=== PATIENT | female | born 1930 | race Caucasian/White ===

== ENCOUNTER 2017-09-10 11:21 | Inpatient (IN) | payer OTHER ==
[~2017-09-10] VITALS: Ht 162.6 cm; Wt 65.6 kg
[~2017-09-10 11:21] MED LIST: ALBIPROI INH; ALEN70 PO; ALPR.5 PO; AMIT50 PO; ASPI325 PO; ASPI81EC PO; Aspirin EC81 MG PO; BETA1 PO; CARV25 PO; CARV6.25 PO; CIPR500 PO; CLON1 PO; CLOP75 PO; DIPH50 PO; ERGO50000 PO; ESCI10 PO; EZET10 PO; FURO40 PO; HYDACE5 PO; HYDCHL12.5; HYDPAM50 PO; HYDR-86 PO; HYDR1TAB94 PO; LEVO750 PO; LEVSOD100 PO; LEVSOD50; LEVSOD50 PO; LIOT5 PO; LISI5 PO; LOSA25 PO; LUTEIN; MECL25 PO; METO50 PO; MULVITMIND PO; MULVITMINF PO; NAPR500 PO; NEBI10 PO; NIAC500ER PO; NITR.4SL SL; Norco 5-325 Ta1 EACH PO; OMEG1CAP30 PO; OMEP20ER PO; OMEPRAZOLE MAGN20 MG PO; POTCHL20ER PO; PRED20 PO; PRESSER VISION; UBID10 PO; UBID100 PO; VENL150ER PO; VENL25
[2017-09-10 12:01] LABS: BASOPHILS ABSOLUTE AUTO 0.03 K/mm3 (0.00-0.23); BASOPHILS PERCENT AUTO 1 % (0-2); EOSINOPHILS ABSOLUTE AUTO 0.13 K/mm3 (0.00-0.68); EOSINOPHILS PERCENT AUTO 2 % (0-6); Hematocrit 34.3 % (33.0-51.0); Hemoglobin 11.4 g/dL (11.5-16.0); IMMATURE GRAN ABSOLUTE AUTO 0.01 K/mm3 (0.00-0.10); IMMATURE GRAN PERCENT AUTO 0 % (0-1); LYMPHOCYTES PERCENT AUTO 23 % (21-46); MONOCYTES ABSOLUTE AUTO 0.59 K/mm3 (0.16-1.47); MONOCYTES PERCENT AUTO 10 % (4-13); Mean Corpuscular HGB Conc 33.2 g/dL (31.5-36.5); NEUTROPHILS ABSOLUTE AUTO 3.71 K/mm3 (1.96-9.15); NEUTROPHILS PERCENT AUTO 64 % (41-73); Platelet Count 204 K/mm3 (150-400); RDW Coefficient Variation 13.2 % (11.7-14.2); RDW Standard Deviation 42.3 fL (35.1-46.3); Red Blood Cell Count 3.93 M/mm3 (3.80-5.20); White Blood Cell Count 5.77 K/mm3 (4.00-11.30)
[2017-09-10 12:02] LABS: Mean Corpuscular Volume 87 fL (80-100)
[2017-09-10 12:11] LABS: Alanine Aminotransfer (ALT/SGP 23 U/L (12-78); Albumin, Blood 3.6 g/dL (3.4-5.0); Albumin/Globulin Ratio 1.1 (0.8-1.8); Alk Phos 42 U/L (50-136); Anion Gap 9 mmol/L (6-16); Aspartate Aminotrans (AST/SGOT 14 U/L (12-37); Bilirubin, Total 0.7 mg/dL (0.1-1.0); Blood Urea Nitrogen 32 mg/dL (8-24); Bun/Creatinine Ratio 34.4 (12.0-20.0); CO2, Blood 27 mmol/L (21-32); Calcium, Blood 8.3 mg/dL (8.5-10.1); Chloride, Blood 102 mmol/L (98-108); Creatinine, Blood 0.93 mg/dL (0.40-1.00); Globulin, Blood 3.4 g/dL (2.2-4.0); Glomerular Filtration Rate >60 (60-); Glucose, Blood 104 mg/dL (70-99); Potassium, Blood 4.3 mmol/L (3.5-5.5); Sodium, Blood 138 mmol/L (136-145)
[2017-09-10 12:13] LABS: Troponin I <0.015 ng/mL (0.000-0.040)
[2017-09-10 17:05] LABS: International Normalized Ratio 1.01; Prothrombin Time Results 10.4 Sec (9.7-11.5)
[2017-09-10] MEDS ORDERED: TORSE20 PO (17:13)
[2017-09-10] MEDS ORDERED: LEVSOD100 PO (17:14)
[2017-09-10] MEDS ORDERED: POTCHL10ER PO (17:15)
[2017-09-10] MEDS ORDERED: CLOP75 PO (17:16)
[2017-09-10] MEDS ORDERED: DULO60 (17:17)
[2017-09-10] MEDS ORDERED: METO25 (17:37)
[2017-09-10] MEDS ORDERED: METO50ER PO (17:41)
[2017-09-10] MEDS ORDERED: ISOMON20 PO (17:41)
[2017-09-11 04:34] LABS: International Normalized Ratio 1.04; Prothrombin Time Results 10.7 Sec (9.7-11.5)
[2017-09-11 04:44] LABS: Anion Gap 8 mmol/L (6-16); Blood Urea Nitrogen 29 mg/dL (8-24); Bun/Creatinine Ratio 35.6 (12.0-20.0); CO2, Blood 28 mmol/L (21-32); Calcium, Blood 8.2 mg/dL (8.5-10.1); Chloride, Blood 101 mmol/L (98-108); Creatinine, Blood 0.82 mg/dL (0.40-1.00); Glomerular Filtration Rate >60 (60-); Glucose, Blood 109 mg/dL (70-99); Potassium, Blood 4.4 mmol/L (3.5-5.5); Sodium, Blood 137 mmol/L (136-145)
[2017-09-12] MEDS ORDERED: FAMO40 PO (09:45)
== END 2017-09-12 10:25 | disposition home or self-care (01) | DRG 287 ==
LOC: ER 11:21 → PCU 12:51
PROVIDERS: Emergency Medicine; Internal Medicine Cardiovascular Disease
PROC: 4A023N7 Measurement of Cardiac Sampling and Pressure, Left Heart, Percutaneous Approach (ICD-10-PCS; principal; 2017-09-11)
PROC: B2111ZZ Fluoroscopy of Multiple Coronary Arteries using Low Osmolar Contrast (ICD-10-PCS; 2017-09-11)
DX: I25.110 Atherosclerotic heart disease of native coronary artery with unstable angina pectoris (principal); I10 Essential (primary) hypertension; E78.5 Hyperlipidemia, unspecified; E03.9 Hypothyroidism, unspecified; I67.9 Cerebrovascular disease, unspecified; I65.22 Occlusion and stenosis of left carotid artery; I25.2 Old myocardial infarction; I95.9 Hypotension, unspecified; Z95.5 Presence of coronary angioplasty implant and graft; D64.9 Anemia, unspecified; Z87.891 Personal history of nicotine dependence
CPT/HCPCS: 36415; 71045; 80048; 80053; 82947; 83735; 84484; 85025; 85610; 85730; 86850; 86900; 86901; 93005; 93010; 93458; 96374; 99152; 99153; 99285-25; C1769; C1894; J0461; J1644; J2250; J3010; J7030; Q9967

== ENCOUNTER 2018-05-22 17:08 | Observation (INO) | payer MEDICARE ==
[~2018-05-22] VITALS: Ht 162.6 cm; Wt 66.9 kg
[~2018-05-22 17:08] MED LIST changes: +ALPR.25 PO; +DULO60 PO; +FAMO40 PO; +ISOMON20 PO; +METO25; +METO50ER PO; +POTCHL10ER PO; +TORSE20 PO
[2018-05-22 17:48] LABS: BASOPHILS ABSOLUTE AUTO 0.03 K/mm3 (0.00-0.23); BASOPHILS PERCENT AUTO 1 % (0-2); EOSINOPHILS ABSOLUTE AUTO 0.07 K/mm3 (0.00-0.68); EOSINOPHILS PERCENT AUTO 1 % (0-6); Hematocrit 34.4 % (33.0-51.0); IMMATURE GRAN ABSOLUTE AUTO 0.01 K/mm3 (0.00-0.10); IMMATURE GRAN PERCENT AUTO 0 % (0-1); LYMPHOCYTES ABSOLUTE AUTO 0.71 K/mm3 (0.84-5.20); LYMPHOCYTES PERCENT AUTO 13 % (21-46); MONOCYTES ABSOLUTE AUTO 0.26 K/mm3 (0.16-1.47); MONOCYTES PERCENT AUTO 5 % (4-13); Mean Corpuscular Volume 94 fL (80-100); Mean Platelet Volume 11.3 fL (9.1-12.4); NEUTROPHILS ABSOLUTE AUTO 4.31 K/mm3 (1.96-9.15); NEUTROPHILS PERCENT AUTO 80 % (41-73); Platelet Count 199 K/mm3 (150-400); RDW Coefficient Variation 13.1 % (11.7-14.2); Red Blood Cell Count 3.67 M/mm3 (3.80-5.20); White Blood Cell Count 5.39 K/mm3 (4.00-11.30)
[2018-05-22 18:22] LABS: Alanine Aminotransfer (ALT/SGP 20 U/L (12-78); Albumin, Blood 3.8 g/dL (3.4-5.0); Albumin/Globulin Ratio 1.2 (0.8-1.8); Alk Phos 47 U/L (50-136); Anion Gap 6 mmol/L (6-16); Aspartate Aminotrans (AST/SGOT 13 U/L (12-37); Bilirubin, Total 0.4 mg/dL (0.1-1.0); Blood Urea Nitrogen 18 mg/dL (8-24); CO2, Blood 27 mmol/L (21-32); Calcium, Blood 8.2 mg/dL (8.5-10.1); Chloride, Blood 103 mmol/L (98-108); Creatinine, Blood 0.75 mg/dL (0.40-1.00); Globulin, Blood 3.3 g/dL (2.2-4.0); Glomerular Filtration Rate >60 (60-); Glucose, Blood 106 mg/dL (70-99); Potassium, Blood 3.8 mmol/L (3.5-5.5); Sodium, Blood 136 mmol/L (136-145); Total Protein, Blood 7.1 g/dL (6.4-8.2); Troponin I 0.026 ng/mL (0.000-0.040)
[2018-05-22] MEDS ORDERED: Isosorbide Mono30 MG PO ×2 (20:00→21:11)
[2018-05-22] MEDS ORDERED: OMEG1CAP30 PO (21:15)
[2018-05-22] MEDS ORDERED: ALEVE PM CAPLE1 EACH PO (21:31)
[2018-05-23 01:28] LABS: Hematocrit 32.3 % (33.0-51.0); Hemoglobin 10.6 g/dL (11.5-16.0); Mean Corpuscular HGB 30.2 pg (26.0-34.0); Mean Corpuscular HGB Conc 32.8 g/dL (31.5-36.5); Mean Corpuscular Volume 92 fL (80-100); Mean Platelet Volume 11.2 fL (9.1-12.4); Platelet Count 186 K/mm3 (150-400); RDW Coefficient Variation 13.1 % (11.7-14.2); RDW Standard Deviation 43.5 fL (35.1-46.3); Red Blood Cell Count 3.51 M/mm3 (3.80-5.20); White Blood Cell Count 5.63 K/mm3 (4.00-11.30)
[2018-05-23 01:50] LABS: Alanine Aminotransfer (ALT/SGP 16 U/L (12-78); Albumin, Blood 3.5 g/dL (3.4-5.0); Albumin/Globulin Ratio 1.1 (0.8-1.8); Alk Phos 43 U/L (50-136); Anion Gap 9 mmol/L (6-16); Aspartate Aminotrans (AST/SGOT 10 U/L (12-37); Bilirubin, Total 0.3 mg/dL (0.1-1.0); Blood Urea Nitrogen 18 mg/dL (8-24); Bun/Creatinine Ratio 28.4 (12.0-20.0); CO2, Blood 25 mmol/L (21-32); CPK Creatine Kinase 62 U/L (26-193); Calcium, Blood 8.1 mg/dL (8.5-10.1); Chloride, Blood 106 mmol/L (98-108); Creatinine, Blood 0.63 mg/dL (0.40-1.00); Globulin, Blood 3.2 g/dL (2.2-4.0); Glomerular Filtration Rate >60 (60-); Glucose, Blood 116 mg/dL (70-99); Potassium, Blood 3.9 mmol/L (3.5-5.5); Sodium, Blood 140 mmol/L (136-145); Total Protein, Blood 6.7 g/dL (6.4-8.2); Troponin I 0.026 ng/mL (0.000-0.040)
[2018-05-23 09:47] LABS: Troponin I 0.038 ng/mL (0.000-0.040)
[2018-05-23] MEDS ORDERED: METO25ER PO (16:34)
[2018-05-23] MEDS ORDERED: OMEPRAZOLE MAGN20 MG PO (16:34)
== END 2018-05-23 17:14 | disposition home or self-care (01) ==
LOC: ER 17:08 → MEDS 17:09
PROVIDERS: Physician Assistant; ADMIT Internal Medicine
DX: R07.9 Chest pain, unspecified (principal); I25.10 Atherosclerotic heart disease of native coronary artery without angina pectoris; F41.9 Anxiety disorder, unspecified; K21.9 Gastro-esophageal reflux disease without esophagitis; D64.9 Anemia, unspecified; I10 Essential (primary) hypertension; I25.2 Old myocardial infarction; E78.5 Hyperlipidemia, unspecified; M81.0 Age-related osteoporosis without current pathological fracture; E03.9 Hypothyroidism, unspecified; Z79.899 Other long term (current) drug therapy; Z79.82 Long term (current) use of aspirin; Z79.02 Long term (current) use of antithrombotics/antiplatelets; Z88.8 Allergy status to other drugs, medicaments and biological substances
CPT/HCPCS: 36415; 71046; 80053; 82550; 84443; 84484; 85025; 85027; 93005; 93010; 96372; 99285-25; G0378; J1650

== ENCOUNTER 2018-06-26 10:14 | Emergency (ER) | payer MEDICARE ==
[~2018-06-26] VITALS: Ht 162.6 cm; Wt 68.0 kg
[~2018-06-26 10:14] MED LIST changes: +ALEVE PM CAPLE1 EACH PO; +Isosorbide Mono30 MG PO; +METO25ER PO
[2018-06-26 10:52] LABS: BASOPHILS ABSOLUTE AUTO 0.02 K/mm3 (0.00-0.23); BASOPHILS PERCENT AUTO 0 % (0-2); EOSINOPHILS ABSOLUTE AUTO 0.01 K/mm3 (0.00-0.68); EOSINOPHILS PERCENT AUTO 0 % (0-6); Hematocrit 34.2 % (33.0-51.0); Hemoglobin 11.1 g/dL (11.5-16.0); IMMATURE GRAN ABSOLUTE AUTO 0.02 K/mm3 (0.00-0.10); IMMATURE GRAN PERCENT AUTO 0 % (0-1); LYMPHOCYTES ABSOLUTE AUTO 0.58 K/mm3 (0.84-5.20); LYMPHOCYTES PERCENT AUTO 10 % (21-46); MONOCYTES ABSOLUTE AUTO 0.19 K/mm3 (0.16-1.47); MONOCYTES PERCENT AUTO 3 % (4-13); Mean Corpuscular HGB 29.4 pg (26.0-34.0); Mean Corpuscular HGB Conc 32.5 g/dL (31.5-36.5); Mean Corpuscular Volume 91 fL (80-100); NEUTROPHILS ABSOLUTE AUTO 5.22 K/mm3 (1.96-9.15); NEUTROPHILS PERCENT AUTO 87 % (41-73); Platelet Count 206 K/mm3 (150-400); RDW Standard Deviation 42.9 fL (35.1-46.3); Red Blood Cell Count 3.78 M/mm3 (3.80-5.20); White Blood Cell Count 6.04 K/mm3 (4.00-11.30)
[2018-06-26 11:21] LABS: Magnesium, Blood 1.9 mg/dL (1.6-2.4)
[2018-06-26 11:27] LABS: Alanine Aminotransfer (ALT/SGP 20 U/L (12-78); Albumin, Blood 3.7 g/dL (3.4-5.0); Alk Phos 45 U/L (50-136); Anion Gap 9 mmol/L (6-16); Aspartate Aminotrans (AST/SGOT 24 U/L (12-37); Bilirubin, Total 0.5 mg/dL (0.1-1.0); Blood Urea Nitrogen 16 mg/dL (8-24); Bun/Creatinine Ratio 25.9 (12.0-20.0); CO2, Blood 25 mmol/L (21-32); Calcium, Blood 8.4 mg/dL (8.5-10.1); Chloride, Blood 100 mmol/L (98-108); Creatinine, Blood 0.62 mg/dL (0.40-1.00); Globulin, Blood 3.7 g/dL (2.2-4.0); Glomerular Filtration Rate >60 (60-); Glucose, Blood 144 mg/dL (70-99); Potassium, Blood 3.9 mmol/L (3.5-5.5); Sodium, Blood 134 mmol/L (136-145); Total Protein, Blood 7.4 g/dL (6.4-8.2); Troponin I <0.015 ng/mL (0.000-0.040)
== END 2018-06-26 14:55 | disposition home or self-care (01) ==
LOC: ER 10:14
PROVIDERS: Emergency Medicine
DX: R00.2 Palpitations (principal); R07.9 Chest pain, unspecified; I25.2 Old myocardial infarction; E78.5 Hyperlipidemia, unspecified; Z79.899 Other long term (current) drug therapy
CPT/HCPCS: 36415; 71046; 80053; 83735; 84484; 85025; 93005; 93010; 93225; 93226; 99284-25

== ENCOUNTER 2018-08-19 13:37 | Emergency (ER) | payer MEDICARE ==
[~2018-08-19] VITALS: Ht 162.6 cm; Wt 63.5 kg
[~2018-08-19 13:37] MED LIST changes: -ALPR.25 PO; +LOVAZA1 GM PO; +PANT40 PO
== END 2018-08-19 14:24 | disposition home or self-care (01) ==
LOC: ER 13:37
DX: S76.111A Strain of right quadriceps muscle, fascia and tendon, initial encounter (principal); X58.XXXA Exposure to other specified factors, initial encounter; R60.0 Localized edema; Z88.8 Allergy status to other drugs, medicaments and biological substances; Z79.899 Other long term (current) drug therapy; Z79.82 Long term (current) use of aspirin; I25.2 Old myocardial infarction; E78.5 Hyperlipidemia, unspecified
CPT/HCPCS: 93971; 99283-25

== ENCOUNTER 2018-10-21 17:34 | Emergency (ER) | payer MEDICARE ==
[~2018-10-21] VITALS: Ht 162.6 cm; Wt 63.5 kg
[2018-10-21 18:07] LABS: BASOPHILS ABSOLUTE AUTO 0.02 K/mm3 (0.00-0.23); BASOPHILS PERCENT AUTO 0 % (0-2); EOSINOPHILS ABSOLUTE AUTO 0.08 K/mm3 (0.00-0.68); EOSINOPHILS PERCENT AUTO 2 % (0-6); Hematocrit 30.9 % (33.0-51.0); Hemoglobin 10.3 g/dL (11.5-16.0); IMMATURE GRAN ABSOLUTE AUTO 0.01 K/mm3 (0.00-0.10); IMMATURE GRAN PERCENT AUTO 0 % (0-1); LYMPHOCYTES PERCENT AUTO 17 % (21-46); MONOCYTES ABSOLUTE AUTO 0.43 K/mm3 (0.16-1.47); MONOCYTES PERCENT AUTO 8 % (4-13); Mean Corpuscular HGB 29.9 pg (26.0-34.0); Mean Corpuscular HGB Conc 33.3 g/dL (31.5-36.5); Mean Corpuscular Volume 90 fL (80-100); NEUTROPHILS ABSOLUTE AUTO 3.82 K/mm3 (1.96-9.15); NEUTROPHILS PERCENT AUTO 73 % (41-73); Platelet Count 175 K/mm3 (150-400); RDW Coefficient Variation 14.4 % (11.7-14.2); RDW Standard Deviation 47.2 fL (35.1-46.3); Red Blood Cell Count 3.45 M/mm3 (3.80-5.20); White Blood Cell Count 5.26 K/mm3 (4.00-11.30)
[2018-10-21 18:30] LABS: Troponin I <0.015 ng/mL (0.000-0.040)
[2018-10-21 18:47] LABS: Alanine Aminotransfer (ALT/SGP 22 U/L (12-78); Albumin, Blood 3.4 g/dL (3.4-5.0); Albumin/Globulin Ratio 1.1 (0.8-1.8); Alk Phos 37 U/L (50-136); Anion Gap 6 mmol/L (6-16); Aspartate Aminotrans (AST/SGOT 17 U/L (12-37); Bilirubin, Total 0.3 mg/dL (0.1-1.0); Blood Urea Nitrogen 22 mg/dL (8-24); Bun/Creatinine Ratio 30.1 (12.0-20.0); CO2, Blood 27 mmol/L (21-32); Chloride, Blood 101 mmol/L (98-108); Creatinine, Blood 0.73 mg/dL (0.40-1.00); Globulin, Blood 3.1 g/dL (2.2-4.0); Glomerular Filtration Rate >60 (60-); Glucose, Blood 100 mg/dL (70-99); Potassium, Blood 3.7 mmol/L (3.5-5.5); Sodium, Blood 134 mmol/L (136-145); Total Protein, Blood 6.5 g/dL (6.4-8.2)
== END 2018-10-21 19:22 | disposition home or self-care (01) ==
LOC: ER 17:34
PROVIDERS: Physician Assistant
DX: R06.00 Dyspnea, unspecified (principal); Z88.8 Allergy status to other drugs, medicaments and biological substances; Z79.899 Other long term (current) drug therapy; Z79.82 Long term (current) use of aspirin; I25.2 Old myocardial infarction; E78.5 Hyperlipidemia, unspecified
CPT/HCPCS: 36415; 71046; 80053; 84484; 85025; 93005; 93010; 99284-25

== ENCOUNTER 2018-11-18 11:06 | Observation (INO) | payer MEDICARE ==
[~2018-11-18] VITALS: Ht 160 cm; Wt 65.8 kg
[2018-11-18 11:46] LABS: BASOPHILS ABSOLUTE AUTO 0.02 K/mm3 (0.00-0.23); BASOPHILS PERCENT AUTO 0 % (0-2); EOSINOPHILS ABSOLUTE AUTO 0.06 K/mm3 (0.00-0.68); EOSINOPHILS PERCENT AUTO 1 % (0-6); Hematocrit 33.5 % (33.0-51.0); IMMATURE GRAN ABSOLUTE AUTO 0.02 K/mm3 (0.00-0.10); IMMATURE GRAN PERCENT AUTO 0 % (0-1); LYMPHOCYTES PERCENT AUTO 11 % (21-46); MONOCYTES ABSOLUTE AUTO 0.27 K/mm3 (0.16-1.47); MONOCYTES PERCENT AUTO 4 % (4-13); Mean Corpuscular HGB 29.9 pg (26.0-34.0); Mean Corpuscular HGB Conc 32.8 g/dL (31.5-36.5); Mean Corpuscular Volume 91 fL (80-100); Mean Platelet Volume 11.2 fL (9.1-12.4); NEUTROPHILS ABSOLUTE AUTO 5.08 K/mm3 (1.96-9.15); NEUTROPHILS PERCENT AUTO 83 % (41-73); Platelet Count 200 K/mm3 (150-400); RDW Coefficient Variation 13.8 % (11.7-14.2); RDW Standard Deviation 46.5 fL (35.1-46.3); Red Blood Cell Count 3.68 M/mm3 (3.80-5.20); White Blood Cell Count 6.15 K/mm3 (4.00-11.30)
[2018-11-18 12:12] LABS: Alanine Aminotransfer (ALT/SGP 20 U/L (12-78); Albumin, Blood 3.3 g/dL (3.4-5.0); Alk Phos 44 U/L (50-136); Anion Gap 8 mmol/L (6-16); Aspartate Aminotrans (AST/SGOT 13 U/L (12-37); Bilirubin, Total 0.4 mg/dL (0.1-1.0); Blood Urea Nitrogen 23 mg/dL (8-24); Bun/Creatinine Ratio 36.6 (12.0-20.0); CO2, Blood 26 mmol/L (21-32); Chloride, Blood 100 mmol/L (98-108); Creatinine, Blood 0.63 mg/dL (0.40-1.00); Globulin, Blood 3.4 g/dL (2.2-4.0); Glomerular Filtration Rate >60 (60-); Glucose, Blood 114 mg/dL (70-99); Potassium, Blood 4.3 mmol/L (3.5-5.5); Sodium, Blood 134 mmol/L (136-145); Total Protein, Blood 6.7 g/dL (6.4-8.2); Troponin I <0.015 ng/mL (0.000-0.040)
[2018-11-18] MEDS ORDERED: MELA3 PO (14:50)
[2018-11-18 15:24] LABS: Percent Saturation 15.6 % (15.0-50.0)
--- NOTE | 2018-11-18 16:44 | NUR ---
PATIENT ARRIVED TO ROOM 324 ON 11/18/2018 AT 16:45 VIA GURNEY.
--- NOTE | 2018-11-18 17:55 | NUR ---
PATIENT IS ALERT AND ORIENTED AND COOPERATIVE WITH CARE. SHE COMPLAINED OF CHEST TIGHTNESS ONCE SINCE SHES BEEN ON MEDICAL FLOOR, SHE REPORTS THAT IS GOES AWAY QUICKLY WITH RELAXATION. SHE DOESNT REFER TO IT PAIN. SHE IS A SBA TO THE BATHROOM. BNP OF [phone]. WILL CONTINUE TO MONITOR
[2018-11-19 04:56] LABS: Hematocrit 34.8 % (33.0-51.0); Hemoglobin 11.5 g/dL (11.5-16.0); Platelet Count 202 K/mm3 (150-400); RDW Coefficient Variation 13.5 % (11.7-14.2); RDW Standard Deviation 43.8 fL (35.1-46.3); Red Blood Cell Count 3.96 M/mm3 (3.80-5.20); White Blood Cell Count 7.58 K/mm3 (4.00-11.30)
[2018-11-19 05:00] LABS: Mean Corpuscular Volume 88 fL (80-100)
--- NOTE | 2018-11-19 05:19 | NUR ---
INSPECTOR WATER POLLUTION CONTROL SUMMARY NO ACUTE CHANGES THIS SHIFT. PT AAOX4 AND INDEPENDENT IN ROOM. PT CONTINUES TO HAVE SAME CHEST DISCOMFORT EVERY ONCE IN A WHILE. PT DESCRIBES IT A DULL ACHE IN HER CHEST THAT SPREADS OUTWARD. PT DENIES SOB OR DIAPHORESIS DURING THESE EPISODES. PT STATES EPISODES OCCUR RANDOMLY. NO ACUTE CHANGES NOTED BY TALLIER DURING THESE EPISODES. PT REPORTED THESE SYMPTOMS 3 TIMES THROUGHOUT THE ENTIRE SHIFT. PT STATES DISCOMFORT LASTS FOR A FEW SECONDS AND THEN GOES AWAY. VITALS STABLE, WILL CONTINUE TO MONITOR.
[2018-11-19 05:24] LABS: Anion Gap 7 mmol/L (6-16); Blood Urea Nitrogen 20 mg/dL (8-24); Bun/Creatinine Ratio 23.2 (12.0-20.0); CO2, Blood 31 mmol/L (21-32); Calcium, Blood 8.3 mg/dL (8.5-10.1); Chloride, Blood 97 mmol/L (98-108); Creatinine, Blood 0.86 mg/dL (0.40-1.00); Glomerular Filtration Rate >60 (60-); Glucose, Blood 97 mg/dL (70-99); Potassium, Blood 3.7 mmol/L (3.5-5.5); Sodium, Blood 135 mmol/L (136-145); Troponin I <0.015 ng/mL (0.000-0.040)
[2018-11-19] MEDS ORDERED: FERSU300 PO (11:50)
[2018-11-19] MEDS ORDERED: FURO40 PO (11:51)
[2018-11-19] MEDS ORDERED: MIRALAX17 GM PO (11:51)
[2018-11-19] MEDS ORDERED: OMEPRAZOLE20 MG PO (11:51)
--- NOTE | 2018-11-19 12:02 | NUR ---
Upon receiving an admit referral, I visited patient. Patient immediately stated that she is going home and that she is a good Mandae[employer] and has no spiritual needs, but she appreciated me stopping by.
--- NOTE | 2018-11-19 18:04 | NUR ---
PATIENT IS ALERT AND ORIENTED AND COOPERATIVE WITH CARE. SHE COMPLAINED OF FEELING DIZZY UPON STANDING WHEN WALKING BACK FROM THE BATHROOM. SHE REPORTED FEELING DIZZY, TINGLY AND SWEATING. DR. CONDON WAS NOTIFIED, HE ORDERED ORTHOSTATIC BP'S, TROPONIN LAB, AND A STAT EKG. HER ORTHOSTATIC BLOOD PRESSURE SHOWED A 35 POINT DIFFERENCE BETWEEN HER SYSTOLIC BP'S. DR. CONDON ASKED FOR THE MINES SAFETY ENGINEER TO WAIT ONE HOUR AND RETAKE THE TEST, IT CAME BACK ROUGHLY THE SAME. THEREFORE DR. CONDON DECIDED TO KEEP THE PATIENT AOTHER NIGHT AFTERALL IN HOPES SHE WOULD FEEL BETTER TOMORROW. WILL CONTINUE TO MONITOR.
--- NOTE | 2018-11-20 12:40 | NUR ---
PT. DISCHARGED HOME. CAREGIVER PICKING HER UP AT ADMISSIONS. [facility] CALLED AND PT. CALLED CAREGIVER. MEDS FAXED TO [facility].
== END 2018-11-20 12:42 | disposition home or self-care (01) ==
LOC: ER 11:06 → MEDS 11:07 → ENPENDDIS 11-20 10:14 → MEDS 11-20 12:42
PROVIDERS: Emergency Medicine; ADMIT Internal Medicine
DX: I11.0 Hypertensive heart disease with heart failure (principal); I50.33 Acute on chronic diastolic (congestive) heart failure; I95.1 Orthostatic hypotension; E87.1 Hypo-osmolality and hyponatremia; I25.10 Atherosclerotic heart disease of native coronary artery without angina pectoris; I25.2 Old myocardial infarction; K21.9 Gastro-esophageal reflux disease without esophagitis; F41.9 Anxiety disorder, unspecified; E03.9 Hypothyroidism, unspecified; D64.9 Anemia, unspecified; Z87.891 Personal history of nicotine dependence; Z88.8 Allergy status to other drugs, medicaments and biological substances; Z91.09 Other allergy status, other than to drugs and biological substances; Z79.899 Other long term (current) drug therapy; Z79.82 Long term (current) use of aspirin; Z79.01 Long term (current) use of anticoagulants
CPT/HCPCS: 36415; 71046; 80048; 80053; 82728; 83540; 83550; 83880; 84484; 85025; 85027; 93005; 93010; 93306; 96372; 96374-59; 96375; 96375-59; 96376; 99285-25; G0378; J1650; J1940; J2405; J3010

== ENCOUNTER 2019-01-02 16:16 | Emergency (ER) | payer MEDICARE ==
[~2019-01-02] VITALS: Ht 162.6 cm; Wt 64.4 kg
[~2019-01-02 16:16] MED LIST changes: +FERSU300 PO; +MELA3 PO; +MIRALAX17 GM PO; +OMEPRAZOLE20 MG PO
[2019-01-02 16:55] LABS: BASOPHILS ABSOLUTE AUTO 0.02 K/mm3 (0.00-0.23); BASOPHILS PERCENT AUTO 0 % (0-2); EOSINOPHILS ABSOLUTE AUTO 0.01 K/mm3 (0.00-0.68); EOSINOPHILS PERCENT AUTO 0 % (0-6); Hematocrit 36.8 % (33.0-51.0); Hemoglobin 12.1 g/dL (11.5-16.0); IMMATURE GRAN ABSOLUTE AUTO 0.01 K/mm3 (0.00-0.10); IMMATURE GRAN PERCENT AUTO 0 % (0-1); LYMPHOCYTES ABSOLUTE AUTO 0.64 K/mm3 (0.84-5.20); LYMPHOCYTES PERCENT AUTO 10 % (21-46); MONOCYTES ABSOLUTE AUTO 0.26 K/mm3 (0.16-1.47); MONOCYTES PERCENT AUTO 4 % (4-13); Mean Corpuscular HGB 30.8 pg (26.0-34.0); Mean Corpuscular HGB Conc 32.9 g/dL (31.5-36.5); Mean Corpuscular Volume 94 fL (80-100); Mean Platelet Volume 10.8 fL (9.1-12.4); NEUTROPHILS ABSOLUTE AUTO 5.43 K/mm3 (1.96-9.15); NEUTROPHILS PERCENT AUTO 85 % (41-73); Platelet Count 212 K/mm3 (150-400); RDW Coefficient Variation 13.6 % (11.7-14.2); RDW Standard Deviation 46.7 fL (35.1-46.3); Red Blood Cell Count 3.93 M/mm3 (3.80-5.20); White Blood Cell Count 6.37 K/mm3 (4.00-11.30)
[2019-01-02 17:31] LABS: Source, Urine Clean Catch
[2019-01-02 17:31] LABS: Alanine Aminotransfer (ALT/SGP 29 U/L (12-78); Albumin, Blood 3.9 g/dL (3.4-5.0); Albumin/Globulin Ratio 1.2 (0.8-1.8); Alk Phos 44 U/L (50-136); Anion Gap 6 mmol/L (6-16); Aspartate Aminotrans (AST/SGOT 14 U/L (12-37); Bilirubin, Total 0.6 mg/dL (0.1-1.0); Blood Urea Nitrogen 38 mg/dL (8-24); Bun/Creatinine Ratio 41.4 (12.0-20.0); CO2, Blood 28 mmol/L (21-32); Calcium, Blood 8.6 mg/dL (8.5-10.1); Chloride, Blood 102 mmol/L (98-108); Creatinine, Blood 0.92 mg/dL (0.40-1.00); Globulin, Blood 3.2 g/dL (2.2-4.0); Glomerular Filtration Rate >60 (60-); Glucose, Blood 119 mg/dL (70-99); Potassium, Blood 3.6 mmol/L (3.5-5.5); Sodium, Blood 136 mmol/L (136-145); Total Protein, Blood 7.1 g/dL (6.4-8.2); Troponin I <0.015 ng/mL (0.000-0.040)
[2019-01-02 17:38] LABS: Bilirubin, Urine Neg (Neg); Blood, Urine Neg (Neg); Glucose Qualitative, Urine Neg (Neg); Ketones, Urine Neg (Neg); Leukocyte Esterase, Urine 2+ (Neg); Nitrite, Urine Neg (Neg); Protein, Urine Neg (Neg); Specific Gravity, Urine 1.015 (1.003-1.022); Urobilinogen, Urine NORM (Normal)
[2019-01-02 18:17] LABS: Appearance, Urine Clear (Clear); Color, Urine Yellow (P-Yellow)
[2019-01-02 18:19] LABS: Bacteria Rare /hpf; Red Blood Cells, Urine 0-2 /hpf (0-2); Squamous Epithelial Cells Few /hpf (Few)
[2019-01-02] MEDS ORDERED: XARELTO20 MG PO (19:15)
== END 2019-01-02 19:58 | disposition home or self-care (01) ==
LOC: ER 16:16
PROVIDERS: Emergency Medicine; Physician Assistant
DX: I48.91 Unspecified atrial fibrillation (principal); I25.2 Old myocardial infarction; E78.5 Hyperlipidemia, unspecified; Z88.8 Allergy status to other drugs, medicaments and biological substances; Z79.899 Other long term (current) drug therapy; Z79.82 Long term (current) use of aspirin; Z79.02 Long term (current) use of antithrombotics/antiplatelets
CPT/HCPCS: 36415; 71046; 80053; 81001; 84484; 85025; 87086; 93005; 93010; 99284-25

== ENCOUNTER 2019-03-13 09:30 | Emergency (ER) | payer MEDICARE ==
[~2019-03-13] VITALS: Ht 162.6 cm; Wt 65.8 kg
[~2019-03-13 09:30] MED LIST changes: -MELA3 PO; +MELATONIN10 M6 PO; +XARELTO20 MG PO
[2019-03-13 10:14] LABS: BASOPHILS ABSOLUTE AUTO 0.02 K/mm3 (0.00-0.23); BASOPHILS PERCENT AUTO 0 % (0-2); EOSINOPHILS PERCENT AUTO 0 % (0-6); Hematocrit 37.1 % (33.0-51.0); Hemoglobin 12.4 g/dL (11.5-16.0); IMMATURE GRAN ABSOLUTE AUTO 0.02 K/mm3 (0.00-0.10); IMMATURE GRAN PERCENT AUTO 0 % (0-1); LYMPHOCYTES ABSOLUTE AUTO 0.61 K/mm3 (0.84-5.20); LYMPHOCYTES PERCENT AUTO 9 % (21-46); MONOCYTES ABSOLUTE AUTO 0.27 K/mm3 (0.16-1.47); MONOCYTES PERCENT AUTO 4 % (4-13); Mean Corpuscular HGB 31.3 pg (26.0-34.0); Mean Corpuscular HGB Conc 33.4 g/dL (31.5-36.5); Mean Corpuscular Volume 94 fL (80-100); Mean Platelet Volume 10.5 fL (9.1-12.4); NEUTROPHILS ABSOLUTE AUTO 5.92 K/mm3 (1.96-9.15); NEUTROPHILS PERCENT AUTO 87 % (41-73); Platelet Count 183 K/mm3 (150-400); RDW Coefficient Variation 13.2 % (11.7-14.2); RDW Standard Deviation 45.1 fL (35.1-46.3); Red Blood Cell Count 3.96 M/mm3 (3.80-5.20); White Blood Cell Count 6.84 K/mm3 (4.00-11.30)
[2019-03-13 10:34] LABS: Alanine Aminotransfer (ALT/SGP 33 U/L (12-78); Albumin, Blood 3.7 g/dL (3.4-5.0); Albumin/Globulin Ratio 1.2 (0.8-1.8); Alk Phos 36 U/L (50-136); Anion Gap 6 mmol/L (6-16); Aspartate Aminotrans (AST/SGOT 14 U/L (12-37); Bilirubin, Total 0.6 mg/dL (0.1-1.0); Blood Urea Nitrogen 23 mg/dL (8-24); Bun/Creatinine Ratio 31.4 (12.0-20.0); CO2, Blood 29 mmol/L (21-32); Calcium, Blood 8.6 mg/dL (8.5-10.1); Chloride, Blood 104 mmol/L (98-108); Creatinine, Blood 0.73 mg/dL (0.40-1.00); Glomerular Filtration Rate >60 (60-); Glucose, Blood 127 mg/dL (70-99); Potassium, Blood 3.6 mmol/L (3.5-5.5); Sodium, Blood 139 mmol/L (136-145); Total Protein, Blood 6.7 g/dL (6.4-8.2); Troponin I <0.015 ng/mL (0.000-0.040)
[2019-03-13] MEDS ORDERED: PANT40 PO (11:05)
[2019-03-13] MEDS ORDERED: ESCI10 PO (11:07)
[2019-03-13 11:09] LABS: Free Thyroxine 1.43 ng/dL (0.70-1.60); Thyroid Stimulating Hormone 1.15 uIU/mL (0.360-4.800)
== END 2019-03-13 11:56 | disposition home or self-care (01) ==
LOC: ER 09:30
PROVIDERS: Emergency Medicine
DX: I48.20 Chronic atrial fibrillation, unspecified (principal); F43.9 Reaction to severe stress, unspecified; I25.2 Old myocardial infarction; Z79.899 Other long term (current) drug therapy
CPT/HCPCS: 36415; 71046; 80053; 83735; 83880; 84439; 84443; 84484; 85025; 93005; 93010; 99285-25

== ENCOUNTER 2019-04-29 09:26 | Emergency (ER) | payer MEDICARE ==
[~2019-04-29] VITALS: Ht 162.6 cm; Wt 63.5 kg
== END 2019-04-29 12:04 | disposition home or self-care (01) ==
LOC: ER 09:26
DX: M65.331 Trigger finger, right middle finger (principal); N39.0 Urinary tract infection, site not specified; E78.5 Hyperlipidemia, unspecified; I25.2 Old myocardial infarction; Z87.891 Personal history of nicotine dependence; Z88.8 Allergy status to other drugs, medicaments and biological substances
CPT/HCPCS: 20552; 73130; 99283-25

== ENCOUNTER → 2019-07-07 | Outpatient (CLI) | payer MEDICARE ==
[2019-07-07 15:54] LABS: BASOPHILS ABSOLUTE AUTO 0.04 K/mm3 (0.00-0.23); BASOPHILS PERCENT AUTO 1 % (0-2); EOSINOPHILS ABSOLUTE AUTO 0.03 K/mm3 (0.00-0.68); EOSINOPHILS PERCENT AUTO 0 % (0-6); Hematocrit 39.4 % (33.0-51.0); Hemoglobin 12.9 g/dL (11.5-16.0); IMMATURE GRAN ABSOLUTE AUTO 0.03 K/mm3 (0.00-0.10); IMMATURE GRAN PERCENT AUTO 0 % (0-1); LYMPHOCYTES PERCENT AUTO 8 % (21-46); MONOCYTES ABSOLUTE AUTO 0.32 K/mm3 (0.16-1.47); MONOCYTES PERCENT AUTO 4 % (4-13); Mean Corpuscular HGB 31.3 pg (26.0-34.0); Mean Corpuscular HGB Conc 32.7 g/dL (31.5-36.5); Mean Corpuscular Volume 96 fL (80-100); Mean Platelet Volume 10.8 fL (9.1-12.4); NEUTROPHILS ABSOLUTE AUTO 6.23 K/mm3 (1.96-9.15); NEUTROPHILS PERCENT AUTO 86 % (41-73); Platelet Count 236 K/mm3 (150-400); RDW Coefficient Variation 12.9 % (11.7-14.2); RDW Standard Deviation 45.5 fL (35.1-46.3); Red Blood Cell Count 4.12 M/mm3 (3.80-5.20); White Blood Cell Count 7.25 K/mm3 (4.00-11.30)
[2019-07-07 16:12] LABS: Alanine Aminotransfer (ALT/SGP 28 U/L (12-78); Albumin, Blood 3.6 g/dL (3.4-5.0); Albumin/Globulin Ratio 1.1 (0.8-1.8); Alk Phos 36 U/L (50-136); Anion Gap 7 mmol/L (6-16); Aspartate Aminotrans (AST/SGOT 16 U/L (12-37); Bilirubin, Total 0.5 mg/dL (0.1-1.0); Blood Urea Nitrogen 26 mg/dL (8-24); Bun/Creatinine Ratio 25.5 (12.0-20.0); CO2, Blood 30 mmol/L (21-32); Calcium, Blood 8.1 mg/dL (8.5-10.1); Chloride, Blood 102 mmol/L (98-108); Creatinine, Blood 1.02 mg/dL (0.40-1.00); Globulin, Blood 3.4 g/dL (2.2-4.0); Glomerular Filtration Rate 54 (60-); Glucose, Blood 131 mg/dL (70-99); Potassium, Blood 4.1 mmol/L (3.5-5.5); Sodium, Blood 139 mmol/L (136-145); Troponin I <0.015 ng/mL (0.000-0.040)
== END | disposition home or self-care (01) ==
LOC: LAB 15:47 → LAB SHORT 15:47
PROVIDERS: Family Medicine
DX: I25.10 Atherosclerotic heart disease of native coronary artery without angina pectoris (principal); R07.89 Other chest pain
CPT/HCPCS: 80053; 84484; 85025

== ENCOUNTER 2020-02-26 10:24 | Day surgery (SDC) | payer MEDICARE ==
[~2020-02-26] VITALS: Ht 162.6 cm; Wt 64.0 kg
[2020-02-26] MEDS ORDERED: LOSA25 PO (11:05)
[2020-02-26] MEDS ORDERED: NEBI10 PO (11:06)
[2020-02-26] MEDS ORDERED: PLAVIX75 MG PO (11:06)
[2020-02-26] MEDS ORDERED: Klor-Con 1010 MEQ PO (11:08)
[2020-02-26] MEDS ORDERED: TORSE20 PO (11:08)
--- NOTE | 2020-02-26 11:49 | NUR ---
1100 PATIENT HERE, NUCLEAR WORKER TECHNICIAN DROPPED HER OFF FOR A BRYON. PATIENT HAS BEEN NPO AND ALL PRE-OPERATIVE LABS ARE NOTED. PIV STARTED, PATIENT PLACED ON THE MONITOR AND OXYGEN IN PLACE BUT NOT ON. INVOICING SPECIALIST AT THE BEDSIDE WITH BRYON SET UP. [id number] BULLARD OF PATIENT READY FOR PROCEDURE.
--- NOTE | 2020-02-26 12:54 | NUR ---
1255 DR. WILSON HERE FOR BRYON. NEW CONSENT SIGNED FOR DR. WILSON. THROAT NUMBED WITH VISCOUS LIDOCAINE GARGLE. POSITIONED FOR PROCEDURE.
--- NOTE | 2020-02-26 13:16 | NUR ---
[address] WILSON AND PATIENT TOLERATED WELL. RESTING QUIETLY, SEDATED AND ON 2LNC. CONTINUE TO MONITOR UNTIL AWAKE.
--- NOTE | 2020-02-26 14:08 | NUR ---
1400 PIV CATHETER REMOVED. TIP INTACT. PATIENT TOLERATED WELL. ASSISTED WITH SITTING UP ON THE SIDE OF THE BED AND DRESSING.REVIEWED ALL DISCAHRGE INSTRUCTIONS AND COPIES GIVEN TO THE PATIENT. PATIWENT UNDERSTANDS TO DRINK EASILY UNTIL SURE THAT THE THROAT NUMBNESS IS FADED AND GONE. PATIENT RIDE AT THE OUTSIDE ENTRANCE. PATIENT WITH ALL BELONGINGS WHEELCHAIRED TO THE DOOR AND ASSISTED INTO THE CAR. DISCHARGED HOME WITH FOLLOW UP IN APR. NO FURTHER QUESTIONS OR PAIN NOTED FROM THE PATIENT.
== END 2020-02-26 23:05 | disposition home or self-care (01) ==
LOC: MHTC 10:24
DX: I08.1 Rheumatic disorders of both mitral and tricuspid valves (principal); I70.0 Atherosclerosis of aorta; E78.5 Hyperlipidemia, unspecified; I11.9 Hypertensive heart disease without heart failure; K21.9 Gastro-esophageal reflux disease without esophagitis; Z79.899 Other long term (current) drug therapy; Z79.82 Long term (current) use of aspirin; Z79.02 Long term (current) use of antithrombotics/antiplatelets; I27.20 Pulmonary hypertension, unspecified
CPT/HCPCS: 93312; 93325; J2250; J3010; J7040

== ENCOUNTER 2020-04-01 09:21 | Day surgery (SDC) | payer MEDICARE ==
[~2020-04-01] VITALS: Ht 160 cm; Wt 63.6 kg
[~2020-04-01 09:21] MED LIST changes: +Klor-Con 1010 MEQ PO; +PLAVIX75 MG PO
[2020-04-01] MEDS ORDERED: Isosorbide Mono30 MG PO (09:58)
[2020-04-01] MEDS ORDERED: EZET10 PO (09:58)
[2020-04-01] MEDS ORDERED: OMEP20ER PO (09:59)
[2020-04-01] MEDS ORDERED: RANO500T PO (09:59)
--- NOTE | 2020-04-01 16:19 | NUR ---
PT UP AND DRESSED PER SELF. CLOTH DOT PLACED OVER R RADIAL SITE AND ARM BOARD IN PLACE. SALUINE LOCK REMOVED WITH CATHETER INTACT. DISCHARGE INSTRUCTIONS REVIEWED WITH BOTH PT AND FRIEND. BOTH VERBALIZE UNDERSTANDING OF INSTRUCTIONS. PT DISCHARGED PER W/C WITH ONE STAFF.
== END 2020-04-01 16:00 | disposition home or self-care (01) ==
LOC: MHTC 09:21
DX: I34.0 Nonrheumatic mitral (valve) insufficiency (principal); I35.1 Nonrheumatic aortic (valve) insufficiency; I48.91 Unspecified atrial fibrillation; E78.5 Hyperlipidemia, unspecified; I25.10 Atherosclerotic heart disease of native coronary artery without angina pectoris; I11.0 Hypertensive heart disease with heart failure; I50.30 Unspecified diastolic (congestive) heart failure; J44.9 Chronic obstructive pulmonary disease, unspecified; G47.10 Hypersomnia, unspecified; Z95.5 Presence of coronary angioplasty implant and graft; Z79.899 Other long term (current) drug therapy; Z79.01 Long term (current) use of anticoagulants; Z88.8 Allergy status to other drugs, medicaments and biological substances
CPT/HCPCS: 76937; 85347; 93460; 93571; 99152; 99153; A9270; C1769; C1887; C1894; J1644; J2250; J3010; J7030; J7040; J7050; Q9967

== ENCOUNTER 2020-09-09 11:05 | Day surgery (SDC) | payer MEDICARE ==
[~2020-09-09] VITALS: Ht 160 cm; Wt 61.8 kg
[~2020-09-09 11:05] MED LIST changes: +RANO500T PO
--- NOTE | 2020-09-09 16:35 | NUR ---
HOB RAISED TO 45 DEGREES, PT PROVIDED WITH MEAL TRAY, TOLERATES PO FLUIDS/FOOD WITH NO DIFFICULTIES. LEFT GROIN SITE APPEARS SOFT NON TENDER WITH NO ACTIVE BLEEDING OR OOZING NOTED. DRESSING C/D/I. CALL LIGHT IN REACH.
--- NOTE | 2020-09-09 17:41 | NUR ---
DISCHARGE PT AMBULATED TO RESTROOM AND DRESSED SELF WITH NO COMPLICATIONS. L FEM SITE WITH NO BRUSING, OOZING, HEMATOMA OR BLEEDING NOTED. PT DENIES ANY PAIN. PT STATES HER UNDERSTANDING OF SITE CARE AND DISCHARGE INSTRUCTIONS AND DENIES ANY QUESTIONS OR CONCERNS UPON DC. IV DCD WITH CATH INTACT. PT TAKEN TO EXIT VIA WHEELCHAIR BY ANOTHER RN WHERE CAREGIVER WAS WAITING WITH VEHICLE.
== END 2020-09-09 23:17 | disposition home or self-care (01) ==
LOC: MHTC 11:05
DX: I70.213 Atherosclerosis of native arteries of extremities with intermittent claudication, bilateral legs (principal); I48.91 Unspecified atrial fibrillation; I10 Essential (primary) hypertension; E78.5 Hyperlipidemia, unspecified; K21.9 Gastro-esophageal reflux disease without esophagitis; Z88.0 Allergy status to penicillin; Z88.1 Allergy status to other antibiotic agents; Z79.899 Other long term (current) drug therapy; Z79.01 Long term (current) use of anticoagulants
CPT/HCPCS: 37224; 75625; 75716; 75774; 76937; 85347; 99152; 99153; C1725; C1760; C1761; C1769; C1887; C1894; C2623; C9772; J1644; J2250; J3010; J7030; J7050; Q9967

== ENCOUNTER 2020-09-16 10:13 | Day surgery (SDC) | payer MEDICARE ==
[~2020-09-16] VITALS: Ht 160 cm; Wt 61.7 kg
[2020-09-16] MEDS ORDERED: XARELTO20 MG PO (10:37)
--- NOTE | 2020-09-16 14:54 | NUR ---
PATIENT RETURNS FROM THE CATHLAB WITH RFA SITE, ANGIOSEAL CLOSURE AT 1430. PATEITN IS AWAKE, NO PAIN NOTED. PEDAL PULSES 1+ BILATERALLY. MONITOR APPLIED. SIDE RAILS UP X 2, CALL LIGHT IN REACH. SBAR RECEIVED FROM BECCA DIAZ
--- NOTE | 2020-09-16 16:50 | NUR ---
PATIENT UP AND OUT OF BED. TO THE RESTROOM AND BACK. NO CHANGE IN RIGHT GROIN SITE. NO PAIN, NO BLEEDING. SOFT, AND SLIGHTLY TENDER. PATIENT PIV REMOVED AND PRESSURE DRESSING APPLIED. PATIENT DRESSED SELF AND GATHERED ALL BELONGINGS. REVIEWED DISCHARGE INSTRUCTIONS WITH THE PATIENT INCLUDING RESTARTING PLAVIX TODAY. PATIETN VERBALIZED UNDERSTNDING AND ALL INSTRUCTIONS SIGNED BY [facility] PATIENT AND COPIES GIVEN. PATIENT DISCHARGED VIA WHEELCHAIR TO THE CAR WITH CAREGIVER DINA SIDHU.
== END 2020-09-16 16:45 | disposition home or self-care (01) ==
LOC: MHTC 10:13
DX: I73.9 Peripheral vascular disease, unspecified (principal); K21.9 Gastro-esophageal reflux disease without esophagitis; I11.0 Hypertensive heart disease with heart failure; I50.9 Heart failure, unspecified; J44.9 Chronic obstructive pulmonary disease, unspecified; E78.5 Hyperlipidemia, unspecified; Z88.1 Allergy status to other antibiotic agents; Z88.0 Allergy status to penicillin; Z88.8 Allergy status to other drugs, medicaments and biological substances; Z79.899 Other long term (current) drug therapy
CPT/HCPCS: 76937; 99152; 99153; C1725; C1760; C1769; C1887; C2623; J2250; J2405; J3010; J7030; J7050; Q9967